=== PATIENT | male | born 1965 | race African-American/Black ===

== ENCOUNTER 2021-12-31 09:33 | Emergency (ER) | payer MEDICAID ==
[~2021-12-31] VITALS: Ht 167.6 cm; Wt 73.8 kg
[~2021-12-31 09:33] MED LIST: INSU100I28 SQ; LEVO500T2 MT
[2021-12-31 10:34] LABS: BASOPHILS % 0.6 % (0.0-2.0); HEMATOCRIT. 43.3 % (42.0-52.0); HEMOGLOBIN. 14.8 g/dL (14.0-18.0); LYMPHOCYTES % 24.9 % (20.0-50.0); MEAN CORPUSCULAR HEMOGLOBIN 29.7 pg (28.0-32.0); MEAN CORPUSCULAR VOLUME 86.8 fL (80.0-94.0); MONOCYTES % 7.7 % (2.0-8.0); NEUTROPHILS % 62.8 % (40.0-76.0); PLATELET 387 x1000/uL (130-400); RED BLOOD CELL COUNT 4.99 mill/uL (4.7-6.1); RED CELL DISTRIBUTION WIDTH 12.3 % (11.6-14.6)
[2021-12-31 10:40] LABS: CHLORIDE 100 mEq/L (98-107)
[2021-12-31 11:46] LABS: CLARITY URINE CLOUDY (CLEAR); COLOR URINE YELLOW (YELLOW); KETONES URINE 1+ (NEGATIVE); LEUKOCYTE ESTERASE URINE 2+ (NEGATIVE); NITRITE URINE NEGATIVE (NEGATIVE); OCCULT BLOOD URINE 2+ (NEGATIVE); PH URINE 5.5 (4.5-8.0); PROTEIN URINE 3+ (NEGATIVE); SPECIFIC GRAVITY URINE 1.041 (1.005-1.030); UROBILINOGEN URINE 0.2 E.U./dL (0.2-1.0)
[2021-12-31] MEDS ORDERED: PREDNISONE 20MG TABLET PO ONE (13:00)
[2021-12-31 13:08] VITALS: BP 161/102
[2021-12-31] MEDS ORDERED: P20 MT (15:27)
== END 2021-12-31 17:22 | disposition home or self-care (01) ==
LOC: ER 09:33
DX: G51.0 Bell's palsy (principal); N39.0 Urinary tract infection, site not specified; E11.9 Type 2 diabetes mellitus without complications; I10 Essential (primary) hypertension
CPT/HCPCS: 36415; 70450; 80053; 81003; 82962; 84484; 85025; 87086; 93005; 99285; J7512

== ENCOUNTER 2022-01-06 13:44 | Emergency (ER) | payer MEDICAID ==
[~2022-01-06] VITALS: Ht 167.6 cm; Wt 78.0 kg
[~2022-01-06 13:44] MED LIST changes: +P20 MT
[2022-01-06] MEDS ORDERED: SODIUM CHLORIDE 0.9% 1,000 ML IV ONE ×2 (15:15→17:30)
[2022-01-06 16:03] LABS: CHLORIDE 91 mEq/L (98-107)
[2022-01-06 16:12] LABS: BASOPHILS % 0.3 % (0.0-2.0); HEMATOCRIT. 45.6 % (42.0-52.0); HEMOGLOBIN. 15.5 g/dL (14.0-18.0); LYMPHOCYTES % 8.1 % (20.0-50.0); MEAN CORPUSCULAR HEMOGLOBIN 29.4 pg (28.0-32.0); MEAN CORPUSCULAR VOLUME 86.4 fL (80.0-94.0); MEAN PLATELET VOLUME 9.4 fl (7.4-10.4); MONOCYTES % 5.8 % (2.0-8.0); NEUTROPHILS % 85.8 % (40.0-76.0); PLATELET 416 x1000/uL (130-400); RED BLOOD CELL COUNT 5.28 mill/uL (4.7-6.1); RED CELL DISTRIBUTION WIDTH 12.2 % (11.6-14.6)
[2022-01-06 16:14] LABS: BETA HYDROXYBUTYRATE 2.2 mMol/L (0.0-0.3)
[2022-01-06] MEDS ORDERED: INSULIN REGULAR (HUMULIN R) 300UNITS/3ML VIAL IV NR (17:30)
[2022-01-06 18:08] LABS: CLARITY URINE CLEAR (CLEAR); COLOR URINE YELLOW (YELLOW); KETONES URINE 1+ (NEGATIVE); LEUKOCYTE ESTERASE URINE 2+ (NEGATIVE); NITRITE URINE NEGATIVE (NEGATIVE); OCCULT BLOOD URINE 1+ (NEGATIVE); PROTEIN URINE 1+ (NEGATIVE); SPECIFIC GRAVITY URINE 1.035 (1.005-1.030); UROBILINOGEN URINE 0.2 E.U./dL (0.2-1.0)
[2022-01-06 20:16] VITALS: BP 150/97
[2022-01-06] MEDS ORDERED: P20 MT (20:40)
[2022-01-06] MEDS ORDERED: PREDNISONE 20MG TABLET PO ONE (20:45)
== END 2022-01-06 22:00 | disposition home or self-care (01) ==
LOC: ER 13:44
DX: E11.65 Type 2 diabetes mellitus with hyperglycemia (principal); G51.0 Bell's palsy; I10 Essential (primary) hypertension
CPT/HCPCS: 36415; 80053; 81003; 82010; 82962; 83605; 83930; 85025; 87086; 96361; 96374; 99283; J1815; J7512